=== PATIENT | male | born 1960 | race Caucasian/White ===

== ENCOUNTER 2022-11-19 10:06 | Emergency (ER) | payer MEDICAID ==
[~2022-11-19 10:06] MED LIST: KEFLEX500 MG PO
[2022-11-19] MEDS ORDERED: MULTIPLE VITAM1 EAC1 PO (10:16)
[2022-11-19] MEDS ORDERED: CEPHALEXIN500 M1 PO (14:18)
== END 2022-11-19 14:06 | disposition home or self-care (01) ==
LOC: ED 10:06
DX: S01.111A Laceration without foreign body of right eyelid and periocular area, initial encounter (principal); W10.8XXA Fall (on) (from) other stairs and steps, initial encounter; Y93.89 Activity, other specified; Y92.009 Unspecified place in unspecified non-institutional (private) residence as the place of occurrence of the external cause; Y99.8 Other external cause status

== ENCOUNTER 2023-02-01 20:28 | Emergency (ER) | payer SELFPAY ==
[~2023-02-01] VITALS: Wt 68.5 kg
[~2023-02-01 20:28] MED LIST changes: +CEPHALEXIN500 M1 PO; +MULTIPLE VITAM1 EAC1 PO
[2023-02-01 21:18] LABS: HEMATOCRIT 46.7 % (42.0-52.0); MEAN CELL VOLUME 98.7 fl (80.0-94.0); MEAN CORPUSCULAR HGB 30.9 pg (27.0-31.0); MEAN CORPUSCULAR HGB CONC 31.3 g/dl (33.0-37.0); MEAN PLATELET VOLUME 11.8 fl (9.6-12.3); PLATELET COUNT AUTOMATED 178 10*3/uL (130-400); RED BLOOD COUNT 4.73 10*6/uL (4.50-5.90); RED CELL DISTRI WIDTH 13.2 % (0-14.5); WHITE BLOOD COUNT 21.2 10*3/uL (4.8-10.8)
[2023-02-01 21:24] LABS: MANUAL DIFF REFLEX YES
[2023-02-01 21:38] LABS: TOTAL CELLS COUNTED 100 #CELLS
[2023-02-01 21:39] LABS: PLATELET SUFFICIENCY NORMAL (NORMAL)
[2023-02-01 21:40] LABS: ALKALINE PHOSPHATASE 60 U/L (46-116); BUN 14 mg/dl (9-23); CHLORIDE 101 mmol/L (98-107); LIPASE 43 U/L (12-53); POTASSIUM 3.3 mmol/L (3.4-5.1); SGPT/ALT 38 U/L (10-49); TOTAL PROTEIN 6.1 gm/dL (6.0-8.0)
[2023-02-01 21:44] LABS: ACT PARTIAL THROMBO TIME 34.5 SECONDS (20.0-32.1); INTERNATIONAL NORM RATIO 1.1 (2.0-3.5)
[2023-02-01 21:46] LABS: ETHYL ALCOHOL < 3.0 mg/dl (<3)
[2023-02-01 22:01] LABS: BILIRUBIN Negative (Negative); BLOOD 1+ (Negative); CLARITY Cloudy (Clear); COLOR Yellow (Yellow); GLUCOSE 2+ (Negative); KETONE Trace (Negative); NITRITE Negative (Negative); PH 5.5 (4.5-8.0); UROBILINOGEN 0.2 E.U./dl (0.0-1.0)
[2023-02-01 22:07] LABS: BACTERIA 1+; FINE GRANULAR CAST 0-2; LEUKO ESTERASE Trace (Negative); MUCOUS 1+; RBC 21-30 rbc/hpf (0-2)
[2023-02-01 22:08] LABS: URINE AMPHETAMINES Negative (1000ng/ml); URINE BARBITURATES Negative (200ng/ml); URINE BENZODIAZEPINES Negative (200ng/ml); URINE CANNABINOIDS (THC) Negative (50ng/ml); URINE COCAINE Negative (300ng/ml); URINE METHADONE Negative (300ng/ml); URINE OPIATES Negative (300ng/ml); URINE PHENCYCLIDINE Negative (25ng/ml)
[2023-02-01 23:22] LABS: ARTERIAL BLOOD GAS PH 7.226 (7.35-7.45); ARTERIAL BLOOD GAS PO2 73.2 (80-90)
[2023-02-01 23:23] LABS: ABG BASE EXCESS -8.4 mmol/L (-2.0-2.0)
== END 2023-02-02 05:51 | disposition short-term general hospital (02) ==
LOC: ED 20:28
PROVIDERS: Internal Medicine
DX: I46.9 Cardiac arrest, cause unspecified (principal); J39.8 Other specified diseases of upper respiratory tract; Z79.899 Other long term (current) drug therapy